=== PATIENT | male | born 1975 | race African-American/Black ===

== ENCOUNTER 2021-01-16 19:58 | Emergency (ER) | payer OTHER ==
[~2021-01-16] VITALS: Ht 175.3 cm; Wt 115.0 kg
[2021-01-16 20:24] LABS: CALCIUM 8.8 mg/dL (8.5-10.1); CREATININE 1.3 mg/dL (0.7-1.3); GFR 71.9
--- NOTE | 2021-01-16 20:47 | ED.ADGEN ---
General Adult EDM: Chief Complaint: SUICDAL IDEATION HPI: HPI: Patient is a 45-year-old male who presents to the emergency room after an attempted hanging. Patient's currently in presents. He took off his jumpsuit and tied the arms together around a pull up bar. He then tied the legs of brown each other and jumped up putting himself within the hole. He states that he thinks he had been there for about 45 to 60 seconds before a guard came and pulled him down. He did not lose consciousness. He states his throat is a little sore but otherwise he feels normal. He denies any kind of shortness of breath. He denies any neck pain. Patient has been refusing to take his medications intermittently according to guards. Review of Systems: Review of Systems: Complete ROS is negative unless otherwise documented in HPI Allergies: Allergies: Allergies Coded Allergies Type Severity Reaction Last Updated Verified cephalexin Allergy Unknown hives 01/16/21 Yes aspirin Adverse Reaction Unknown headache 01/16/21 Yes Physical Exam: PE: General: Awake, alert, NAD. Well Nourished, well hydrated. Cooperative HEENT: Atraumatic, EOMI, PERRL, airway patent, moist oral mucosa, no nasal septal hematoma, no facial crepitus or deformity Neck: Supple, trachea midline, no C-spine tenderness, no signs of ligature matthew Respiratory: CTA bilaterally, normal effort, no wheezing/crackles, no crepitus CV: RRR, no murmur, cap refill <2, 2+ bilateral radial/DP pulses GI: Soft, nondistended, nontender, no masses MSK: R knee: diffuse swelling and tenderness along medial side , pelvis stable and nontender Skin: Warm, dry, [intact] Neuro: A&O x3, speech NL, sensory and motor grossly intact, no focal deficits Psych: Normal affect, normal mood, not suicidal or homicidal Current Patient Data: Labs: Laboratory Tests Test 01/16/21 20:05 Sodium Level 138 mmol/L (136-145) Potassium Level 4.0 mmol/L (3.5-5.1) Chloride Level 103 mmol/L (98-107) Carbon Dioxide Level 26 mmol/L (21-32) Anion Gap 9 (6-14) Blood Urea Nitrogen 10 mg/dL (8-26) Creatinine 1.3 mg/dL (0.7-1.3) Estimated GFR (Cockcroft-Gault) 71.9 Glucose Level 91 mg/dL (70-99) Calcium Level 8.8 mg/dL (8.5-10.1) Laboratory Tests 01/16/21 20:05 Vital Signs: Vital Signs Date Time Temp Pulse Resp B/P (MAP) Pulse Ox O2 Delivery O2 Flow Rate FiO2 01/16/21 21:45 98.4 91 18 165/82 (109) 99 Room Air 98.4 EKG: EKG: [] Heart Score: C/O Chest Pain: N/A Risk Factors: Risk Factors: DM, Current or recent (<one month) smoker, HTN, HLP, family history of CAD, obesity. Risk Scores: Score 0 - 3: 2.5% MACE over next 6 weeks - Discharge Home Score 4 - 6: 20.3% MACE over next 6 weeks - Admit for Clinical Observation Score 7 - 10: 72.7% MACE over next 6 weeks - Early Invasive Strategies Radiology/Procedures: Radiology/Procedures: [] Course & Med Decision Making: Course & Med Decision Making Pertinent Labs and Imaging studies reviewed. (See chart for details) Patient is a 45-year-old male who presents to the emergency room after attempting to hang himself. Patient did not lose consciousness. He overall is well-appearing. He has a normal neurologic exam. He did have some tremors and lethargy upon EMS arrival but this resolved prior to arrival here to the emergency room. CT cervical spine and head will be ordered to rule out any signs of anoxic injury or C-spine injury. Patient does not have a bruit along his carotid. There is no signs of an expanding hematoma. There is no signs of Clarita syndrome. CT cervical spine is negative for any fractures. CT head is negative for any signs of anoxic brain injury. Patient is overall well- appearing. With the Ayaz screening criteria patient does not have any signs, symptoms, or risk factors that would be suggestive of a blunt cerebrovascular injury. Of note patient also complained of a right knee injury that occurred 5 days ago. He states while doing [employer] he felt a snap in his anterior knee and is having pain in his anterior knee and medial knee. Patient does have swelling. X-ray was done to rule out any fracture. I have recommended that he follow-up with an orthopedic physician to determine if he may need an MRI. He was placed in a knee brace. Patient's test results and vitals while in the ED were fully reviewed and discussed with the patient. Patient is stable and at this time does not need admission to the hospital. We have discussed strict return precautions and the importance of following up with their Primary Care Physician. Patient stated understanding and was given an opportunity to ask any questions. Patient is in agreement with plan. Dragon Disclaimer: Dragon Disclaimer: This electronic medical record was generated, in whole or in part, using a voice recognition dictation system. Departure Departure Impression: Primary Impression: Suicide attempt by hanging Additional Impression: Knee pain Disposition: 01 DC HOME SELF CARE/HOMELESS Condition: STABLE Referrals: UNKNOWN PCP NAME (PCP) Patient Instructions: Knee Immobilization, Soft Tissue Injury of the Neck Additional Instructions: We recommend following up with an Orthopedic physician to determine if patient will need an outpatient MRI for knee injury. Problem Qualifiers LURDES BELTRAN MD Jan 16, 2021 20:47
--- NOTE | 2021-01-16 20:59 | RAD ---
CT brain without contrast, CT cervical spine without contrast. HISTORY: Attempted hanging CT brain CT scan of brain was done without contrast. There is mild mucosal thickening in the right maxillary a ntrum. Sinuses are otherwise clear. There is no skull fracture. Mastoids are normally aerated. There is no intracranial hemorrhage or subdural hematoma. Ventricles are normal in size. There is no mass e ffect or shift of the midline. There is not definitive loss of the griffin-white matter differentiation at this point. Diffuse edema not definitively identified, follow-up study may be of benefit. IMPRESSION: 1. No intracranial hemorrhage or definite acute finding at this time. CT C-spine Axial CT images were obtained through the cervical spine. Sagittal and coronal reconstructed images w ere reviewed. Thyroid is homogeneous. No mass or adenopathy in the neck. There is no acute C-spine fr acture. C-spine is in normal alignment. Disc spaces are normal in height. IMPRESSION: 1. No acute C-spine fracture noted. PQRS Compliance Statement: One or more of the following individualized dose reduction techniques were utilized for this examinat ion: 1. Automated exposure control 2. Adjustment of the mA and/or kV according to patient size 3. Use of iterative reconstruction technique Electronically signed by: Darwin Crow MD (01/16/2021 8:56 PM) [facility]
[2021-01-16 21:45] VITALS: BP 165/82
--- NOTE | 2021-01-16 22:29 | RAD ---
INDICATION: Reason: pain, swelling / Spl. Instructions: / History: COMPARISON: None. IMPRESSION: Right knee: 4 views obtained. Mild degenerative changes with osteophyte formation and mild joint spac e narrowing. Edema of soft tissues. Prepatellar soft tissue swelling. Suspected small joint effusion as well as mild edema of Hoffa's fat pad. No definite acute fracture line is seen. No dislocation. Electronically signed by: Cruz Morgan MD (01/16/2021 10:26 PM) [id number]
== END 2021-01-16 21:57 | disposition home or self-care (01) ==
LOC: ER 19:58 → EEVIPCON 19:58 → ER 21:57
DX: R45.851 Suicidal ideations (principal); M25.561 Pain in right knee; R60.0 Localized edema; Z88.1 Allergy status to other antibiotic agents; Z88.8 Allergy status to other drugs, medicaments and biological substances
CPT/HCPCS: 36415; 70450; 72125; 73564; 80048; 93005; 99285